=== PATIENT | male | born 1945 | race Asian ===

== ENCOUNTER → 2016-12-31 | Outpatient (CLI) | payer OTHER | END | disposition home or self-care (01) | LOC: RADPV 09:08 | PROVIDERS: ATTEND Internal Medicine Nephrology | DX: N18.9 Chronic kidney disease, unspecified (principal); N28.1 Cyst of kidney, acquired | CPT/HCPCS: 76770 ==

== ENCOUNTER 2021-08-16 04:30 | Inpatient (IN) | payer MEDICARE, OTHER ==
[~2021-08-16] VITALS: Ht 165.1 cm; Wt 79.4 kg
[2021-08-16 05:15] LABS: BASOPHILS % (AUTO) 1.3 % (0.0-2.0); EOSINOPHILS % (AUTO) 3.7 % (1.0-6.0); HEMOGLOBIN 7.8 g/dL (13.5-17.5); LYMPHOCYTES # (AUTO) 1.7 K/uL (1.0-4.8); LYMPHOCYTES % (AUTO) 18.8 % (22.0-44.0); MEAN CORPUSCULAR HEMOGLOBIN 27.8 pg (26.0-34.0); MEAN CORPUSCULAR HGB CONC 32.6 G/dL (31.0-37.0); MEAN CORPUSCULAR VOLUME 85 fL (80-100); MONOCYTES # (AUTO) 0.7 K/uL (0.1-1.0); MONOCYTES % (AUTO) 8.2 % (2.0-9.0); NEUTROPHILS # (AUTO) 6.1 K/uL (1.8-7.7); PLATELET COUNT (AUTO) 231 K/uL (150-450); RED BLOOD CELL COUNT(AUTO) 2.82 MIL/uL (4.50-5.90); RED CELL DISTRIBUTION WIDTH 15.1 % (11.5-14.5)
[2021-08-16 05:19] LABS: COVID AG,FIA SOURCE NASOPHARYNGEAL
[2021-08-16 05:26] LABS: CALCIUM, TOTAL 7.8 mg/dL (8.8-10.5); CREATININE 8.89 mg/dL (0.60-1.30); POTASSIUM 4.7 mmol/L (3.5-5.1)
[2021-08-16 05:30] LABS: PROTHROMBIN TIME 10.2 SEC (9.4-11.6)
[2021-08-16 05:36] LABS: ALBUMIN 2.5 g/dL (3.4-5.0); BILIRUBIN,TOTAL 0.4 mg/dL (0.1-1.0); PHOSPHORUS 7.9 mg/dL (2.5-4.9); TOTAL PROTEIN, SERUM 6.4 g/dL (6.4-8.2)
[2021-08-16] MEDS ORDERED: FUROSEMIDE 40 MG/4 ML VIAL IVP ONE (06:15)
[2021-08-16] MEDS ORDERED: NITROGLYCERIN 50 MG/D5% WATER 250 ML IV PRN (06:15)
[2021-08-16] MEDS ORDERED: ASPIRIN 81 MG CHEWABLE TABLET PO ONE (06:15)
[2021-08-16 06:31] LABS: APPEARANCE,URINE CLEAR (CLEAR); BILIRUBIN,URINE NEGATIVE (NEGATIVE); GLUCOSE, URINE (UA) 250 mg/dL (NEGATIVE); KETONES,URINE NEGATIVE (NEGATIVE); LEUKOCYTE ESTERASE ,URINE NEGATIVE (NEGATIVE); NITRATE,URINE NEGATIVE (NEGATIVE); OCCULT BLOOD,URINE MODERATE (NEGATIVE); PH,URINE 5.5 (5.0-8.0); PROTEIN,URINE SEE CONFIRM (NEGATIVE); UROBILINOGEN,URINE 0.2 mg/dL (<=1.0)
[2021-08-16 06:49] LABS: BACTERIA,URINE None Seen /HPF (None Seen); SULFOSALICYLIC ACID,URINE 4+ (Negative); WBC,URINE None Seen /HPF (0-5)
[2021-08-16 06:50] LABS: FINE GRANULAR CASTS,URINE 0-2 /LPF (None Seen)
[2021-08-16] MEDS ORDERED: NiCARDipine HCL 25 MG in DEXTROSE 5%-WATER 240 ML IV PRN (08:30)
[2021-08-16] MEDS ORDERED: BISACODYL 10 MG RECTAL RECTAL SUPPOSITORY PR PRN (09:30)
[2021-08-16] MEDS ORDERED: 0.9% SODIUM CHLORIDE 10 ML SYRINGE IVP PRN (09:30)
[2021-08-16] MEDS ORDERED: ALBUTEROL SULFATE 2.5 MG/0.5 ML NEB SOLUTION NEB PRN (09:30)
[2021-08-16] MEDS ORDERED: ACETAMINOPHEN 325 MG TABLET PO PRN (09:30)
[2021-08-16] MEDS ORDERED: DEXTROSE 50%-WATER 25 GM/50 ML SYRINGE IVP PRN (09:30)
[2021-08-16] MEDS ORDERED: IPRATROPIUM BROMIDE 0.5 MG/2.5 ML NEB SOLUTION NEB PRN (09:30)
[2021-08-16] MEDS ORDERED: ONDANSETRON HCL 4 MG/2 ML VIAL IVP PRN (09:30)
[2021-08-16] MEDS: PANTOPRAZOLE SODIUM 40 MG DR TABLET PO SCH (09:51)
[2021-08-16] MEDS: ASPIRIN 81 MG CHEWABLE TABLET PO SCH (09:52)
[2021-08-16] MEDS: ATORVASTATIN CALCIUM 20 MG TABLET PO SCH (10:18)
[2021-08-16] MEDS: NITROGLYCERIN 2% (1 GM=INCH) PACKET TP SCH ×2 (10:18→16:59)
[2021-08-16] MEDS ORDERED: BUMETANIDE 0.25 MG/ML 4 ML VIAL IVP ONE (10:30)
[2021-08-16] MEDS ORDERED: LABETALOL HCL 5 MG/ML 20 ML VIAL IVP PRN (11:00)
[2021-08-16] MEDS: HydrALAZINE HCL 50 MG TABLET PO SCH ×2 (11:00→21:31)
[2021-08-16] MEDS: SODIUM BICARBONATE 650 MG TABLET PO SCH ×3 (11:15→21:31)
[2021-08-16] MEDS ORDERED: PENTETATE DTPA TC99M/MCL ISOTOPE 1 EA INJ INJ ONE (11:30)
[2021-08-16] MEDS ORDERED: MAA ALBUMIN AGGREGATED TC99M/UD<10MCL ISOTOPE 1 EA INJ INJ ONE (12:30)
[2021-08-16 13:26] VITALS: BP 177/94
[2021-08-16 16:28] VITALS: BP 138/76
[2021-08-16] MEDS: LABETALOL HCL 100 MG TABLET PO SCH ×2 (16:59→21:33)
[2021-08-16 20:11] VITALS: BP 126/67
[2021-08-16 20:19] LABS: GLUCOMETER DEV NAME(LOC) 5S.1; GLUCOSE,POINT OF CARE 245 MG/DL (70-110)
[2021-08-16 20:19] LABS: GLUCOMETER DEV NAME(LOC) 5S.1; GLUCOSE,POINT OF CARE 168 MG/DL (70-110)
[2021-08-16] MEDS: INSULIN LISPRO 100 UNITS/ML SQ PRN (21:33)
[2021-08-17] VITALS (12 sets, daily range): BP systolic 115–162; BP diastolic 55–82
[2021-08-17] MEDS: NITROGLYCERIN 2% (1 GM=INCH) PACKET TP SCH ×4 (01:06→23:46)
[2021-08-17 06:19] LABS: GLUCOMETER DEV NAME(LOC) 5N.3; GLUCOSE,POINT OF CARE 92 MG/DL (70-110)
[2021-08-17] MEDS: BUMETANIDE 0.25 MG/ML 4 ML VIAL IVP SCH (06:20)
[2021-08-17 06:33] LABS: % IRON SATURATION 14.6 % (30-44)
[2021-08-17 07:01] LABS: BASOPHILS % (AUTO) 0.8 % (0.0-2.0); EOSINOPHILS % (AUTO) 2.5 % (1.0-6.0); LYMPHOCYTES # (AUTO) 1.7 K/uL (1.0-4.8); LYMPHOCYTES % (AUTO) 17.8 % (22.0-44.0); MEAN CORPUSCULAR HEMOGLOBIN 27.8 pg (26.0-34.0); MEAN CORPUSCULAR HGB CONC 32.4 G/dL (31.0-37.0); MEAN CORPUSCULAR VOLUME 86 fL (80-100); MONOCYTES % (AUTO) 10.3 % (2.0-9.0); NEUTROPHILS # (AUTO) 6.4 K/uL (1.8-7.7); NEUTROPHILS % (AUTO) 68.6 % (40.0-70.0); PLATELET COUNT (AUTO) 202 K/uL (150-450); RED BLOOD CELL COUNT(AUTO) 2.43 MIL/uL (4.50-5.90)
[2021-08-17 07:12] LABS: ALBUMIN 2.1 g/dL (3.4-5.0); BILIRUBIN,TOTAL 0.4 mg/dL (0.1-1.0); CALCIUM, TOTAL 7.4 mg/dL (8.8-10.5); CHOL/HDL RATIO 2.5 (4.2-7.3); CREATININE 9.4 mg/dL (0.60-1.30); FREE T4 (FREE THYROXINE) 0.96 ng/dL (0.76-1.46); PHOSPHORUS 8.4 mg/dL (2.5-4.9); POTASSIUM 4.5 mmol/L (3.5-5.1); THYROID STIMULATING HORMONE 1.28 uIU/mL (0.36-3.74); TOTAL PROTEIN, SERUM 5.6 g/dL (6.4-8.2)
[2021-08-17 07:16] LABS: HEMATOCRIT 20.8 % (41-53); HEMOGLOBIN 6.7 g/dL (13.5-17.5)
[2021-08-17] MEDS ORDERED: HydrALAZINE HCL 50 MG TABLET PO SCH (09:00)
[2021-08-17] MEDS: HydrALAZINE HCL 50 MG TABLET PO SCH ×3 (09:00→21:22)
[2021-08-17] MEDS ORDERED: ISOSORB DINIT/HYDRALAZINE HCL 20-37.5 MG TABLET PO SCH (09:00)
[2021-08-17] MEDS: CARVEDILOL 25 MG TABLET PO SCH ×2 (09:00→21:19)
[2021-08-17] MEDS: SODIUM BICARBONATE 650 MG TABLET PO SCH ×2 (09:00→21:22)
[2021-08-17] MEDS: CALCIUM ACETATE 667 MG CAPSULE PO SCH ×2 (12:00→18:00)
[2021-08-17 12:26] LABS: GLUCOMETER DEV NAME(LOC) 5S.1; GLUCOSE,POINT OF CARE 88 MG/DL (70-110)
[2021-08-17] MEDS: EPOETIN ALFA 10,000 UNITS/ML 2 ML VIAL SQ SCH (15:23)
[2021-08-17] MEDS: PANTOPRAZOLE SODIUM 40 MG DR TABLET PO SCH (15:24)
[2021-08-17] MEDS: ATORVASTATIN CALCIUM 20 MG TABLET PO SCH (15:24)
[2021-08-17] MEDS: CHOLECALCIFEROL (VIT D3) 5,000 [125 MCG] UNITS CAPSULE PO SCH (15:27)
[2021-08-17] MEDS ORDERED: SODIUM CHLORIDE 0.9% 1,000 ML ONE (17:58)
[2021-08-17] MEDS: INSULIN LISPRO 100 UNITS/ML SQ PRN (18:01)
[2021-08-17 21:23] LABS: GLUCOMETER DEV NAME(LOC) 5N.1C; GLUCOSE,POINT OF CARE 173 MG/DL (70-110)
[2021-08-17] MEDS ORDERED: SODIUM CHLORIDE 0.9% 250 ML IV ONE (21:44)
[2021-08-18] VITALS (8 sets, daily range): BP systolic 137–162; BP diastolic 58–87
[2021-08-18] MEDS: BUMETANIDE 0.25 MG/ML 4 ML VIAL IVP SCH (06:05)
[2021-08-18 07:04] LABS: HEMATOCRIT 25.7 % (41-53); HEMOGLOBIN 8.5 g/dL (13.5-17.5); LYMPHOCYTES # (AUTO) 1.3 K/uL (1.0-4.8); LYMPHOCYTES % (AUTO) 14.2 % (22.0-44.0); MEAN CORPUSCULAR HEMOGLOBIN 28.4 pg (26.0-34.0); MEAN CORPUSCULAR HGB CONC 33.2 G/dL (31.0-37.0); MEAN CORPUSCULAR VOLUME 86 fL (80-100); MONOCYTES # (AUTO) 0.9 K/uL (0.1-1.0); MONOCYTES % (AUTO) 10.1 % (2.0-9.0); NEUTROPHILS # (AUTO) 6.7 K/uL (1.8-7.7); NEUTROPHILS % (AUTO) 71.7 % (40.0-70.0); PLATELET COUNT (AUTO) 219 K/uL (150-450); RED CELL DISTRIBUTION WIDTH 14.9 % (11.5-14.5)
[2021-08-18 07:18] LABS: ALBUMIN 2.2 g/dL (3.4-5.0); BILIRUBIN,TOTAL 0.8 mg/dL (0.1-1.0); CALCIUM, TOTAL 7.9 mg/dL (8.8-10.5); CREATININE 9.81 mg/dL (0.60-1.30); MAGNESIUM 2.2 mg/dL (1.80-2.40); PHOSPHORUS 8.7 mg/dL (2.5-4.9); POTASSIUM 4.9 mmol/L (3.5-5.1); TOTAL PROTEIN, SERUM 6.3 g/dL (6.4-8.2)
[2021-08-18] MEDS: PANTOPRAZOLE SODIUM 40 MG DR TABLET PO SCH (08:22)
[2021-08-18] MEDS: HydrALAZINE HCL 50 MG TABLET PO SCH ×3 (08:22→20:26)
[2021-08-18] MEDS: SOD FERRIC GLUC COMPLX/SUCROSE 125 MG in SODIUM CHLORIDE 0.9% 100 ML IV SCH ×2 (08:22→11:04)
[2021-08-18] MEDS: SODIUM BICARBONATE 650 MG TABLET PO SCH ×2 (08:22→20:26)
[2021-08-18] MEDS: CALCIUM ACETATE 667 MG CAPSULE PO SCH ×3 (08:23→18:12)
[2021-08-18] MEDS: CARVEDILOL 25 MG TABLET PO SCH ×2 (08:23→20:26)
[2021-08-18] MEDS: ATORVASTATIN CALCIUM 20 MG TABLET PO SCH (08:23)
[2021-08-18] MEDS: ASPIRIN 81 MG CHEWABLE TABLET PO SCH (08:23)
[2021-08-18] MEDS: CHOLECALCIFEROL (VIT D3) 5,000 [125 MCG] UNITS CAPSULE PO SCH (08:26)
[2021-08-18] MEDS: NITROGLYCERIN 2% (1 GM=INCH) PACKET TP SCH ×3 (08:26→23:41)
[2021-08-18] MEDS ORDERED: MIDAZOLAM HCL 2 MG/2 ML VIAL ONE (08:41)
[2021-08-18] MEDS ORDERED: FentaNYL CITRATE PF 100 MCG/2 ML VIAL ONE (08:41)
[2021-08-18] MEDS ORDERED: NALOXONE HCL 0.4 MG/ML VIAL ONE (08:41)
[2021-08-18] MEDS ORDERED: FLUMAZENIL 0.1 MG/ML 5 ML VIAL IVP ONE (08:41)
[2021-08-18] MEDS ORDERED: MIDAZOLAM HCL 2 MG/2 ML VIAL IVP ONE (09:20)
[2021-08-18] MEDS ORDERED: FentaNYL CITRATE PF 100 MCG/2 ML VIAL IVP ONE ×2 (09:20→09:35)
[2021-08-18 12:14] LABS: GLUCOMETER DEV NAME(LOC) 5N.3; GLUCOSE,POINT OF CARE 120 MG/DL (70-110)
[2021-08-18] MEDS ORDERED: SODIUM CHLORIDE 0.9% 2,000 ML ONE (14:56)
[2021-08-18 17:15] LABS: GLUCOMETER DEV NAME(LOC) 5S.1; GLUCOSE,POINT OF CARE 140 MG/DL (70-110)
[2021-08-18 18:12] LABS: GLUCOMETER DEV NAME(LOC) 5S.1; GLUCOSE,POINT OF CARE 120 MG/DL (70-110)
[2021-08-18] MEDS: INSULIN LISPRO 100 UNITS/ML SQ PRN (20:27)
[2021-08-19 00:28] VITALS: BP 140/65
[2021-08-19 01:18] LABS: GLUCOMETER DEV NAME(LOC) 5S.1; GLUCOSE,POINT OF CARE 230 MG/DL (70-110)
[2021-08-19 04:52] VITALS: BP 149/80
[2021-08-19 06:07] LABS: BASOPHILS % (AUTO) 0.8 % (0.0-2.0); HEMATOCRIT 25.7 % (41-53); HEMOGLOBIN 8.5 g/dL (13.5-17.5); LYMPHOCYTES # (AUTO) 1.2 K/uL (1.0-4.8); LYMPHOCYTES % (AUTO) 12.4 % (22.0-44.0); MEAN CORPUSCULAR HEMOGLOBIN 28.4 pg (26.0-34.0); MEAN CORPUSCULAR HGB CONC 33.2 G/dL (31.0-37.0); MEAN CORPUSCULAR VOLUME 85 fL (80-100); MONOCYTES # (AUTO) 1.2 K/uL (0.1-1.0); MONOCYTES % (AUTO) 11.9 % (2.0-9.0); NEUTROPHILS # (AUTO) 7.2 K/uL (1.8-7.7); NEUTROPHILS % (AUTO) 71.9 % (40.0-70.0); PLATELET COUNT (AUTO) 180 K/uL (150-450); RED BLOOD CELL COUNT(AUTO) 3.01 MIL/uL (4.50-5.90)
[2021-08-19 07:08] LABS: GLUCOMETER DEV NAME(LOC) 5S.2B; GLUCOSE,POINT OF CARE 129 MG/DL (70-110)
[2021-08-19 07:08] LABS: BILIRUBIN,TOTAL 0.4 mg/dL (0.1-1.0); CALCIUM, TOTAL 8.1 mg/dL (8.8-10.5); CREATININE 7.76 mg/dL (0.60-1.30); PHOSPHORUS 6.2 mg/dL (2.5-4.9); POTASSIUM 4.5 mmol/L (3.5-5.1); TOTAL PROTEIN, SERUM 5.8 g/dL (6.4-8.2)
[2021-08-19 07:50] VITALS: BP 175/83
[2021-08-19] MEDS: ATORVASTATIN CALCIUM 20 MG TABLET PO SCH (08:14)
[2021-08-19] MEDS: SODIUM BICARBONATE 650 MG TABLET PO SCH (08:15)
[2021-08-19] MEDS: ASPIRIN 81 MG CHEWABLE TABLET PO SCH (08:16)
[2021-08-19] MEDS: HydrALAZINE HCL 50 MG TABLET PO SCH ×3 (08:17→20:45)
[2021-08-19] MEDS: CHOLECALCIFEROL (VIT D3) 5,000 [125 MCG] UNITS CAPSULE PO SCH (08:17)
[2021-08-19] MEDS: DOCUSATE SODIUM 100 MG CAPSULE PO PRN (08:17)
[2021-08-19] MEDS: NITROGLYCERIN 2% (1 GM=INCH) PACKET TP SCH ×3 (08:17→23:18)
[2021-08-19] MEDS: PANTOPRAZOLE SODIUM 40 MG DR TABLET PO SCH (08:17)
[2021-08-19] MEDS: CARVEDILOL 25 MG TABLET PO SCH ×2 (08:18→20:45)
[2021-08-19] MEDS: BUMETANIDE 0.25 MG/ML 4 ML VIAL IVP SCH (08:18)
[2021-08-19] MEDS: CALCIUM ACETATE 667 MG CAPSULE PO SCH ×3 (08:18→17:34)
[2021-08-19] MEDS: EPOETIN ALFA 10,000 UNITS/ML 2 ML VIAL SQ SCH (08:19)
[2021-08-19 11:15] VITALS: BP 161/100
[2021-08-19] MEDS: SOD FERRIC GLUC COMPLX/SUCROSE 125 MG in SODIUM CHLORIDE 0.9% 100 ML IV SCH (12:12)
[2021-08-19] MEDS: INSULIN LISPRO 100 UNITS/ML SQ PRN ×2 (12:19→20:53)
[2021-08-19] MEDS ORDERED: SODIUM CHLORIDE 0.9% 2,000 ML ONE (13:47)
[2021-08-19 15:05] VITALS: BP 159/76
[2021-08-19 17:41] LABS: GLUCOMETER DEV NAME(LOC) 5S.2B; GLUCOSE,POINT OF CARE 217 MG/DL (70-110)
[2021-08-19 19:26] VITALS: BP 138/64
[2021-08-20 00:14] VITALS: BP 158/68
[2021-08-20 04:17] LABS: GLUCOMETER DEV NAME(LOC) 5S.2B; GLUCOSE,POINT OF CARE 115 MG/DL (70-110)
[2021-08-20 04:17] LABS: GLUCOMETER DEV NAME(LOC) 5S.2B; GLUCOSE,POINT OF CARE 241 MG/DL (70-110)
[2021-08-20 05:27] VITALS: BP 170/93
[2021-08-20 06:43] LABS: CALCIUM, TOTAL 8.1 mg/dL (8.8-10.5); CREATININE 5.43 mg/dL (0.60-1.30); PHOSPHORUS 3.9 mg/dL (2.5-4.9)
[2021-08-20 07:35] VITALS: BP 177/79
[2021-08-20] MEDS: NITROGLYCERIN 2% (1 GM=INCH) PACKET TP SCH ×2 (08:00→16:00)
[2021-08-20] MEDS: HydrALAZINE HCL 50 MG TABLET PO SCH ×3 (09:00→20:54)
[2021-08-20] MEDS ORDERED: SODIUM CHLORIDE 0.9% 2,000 ML ONE (09:34)
[2021-08-20] MEDS: DOCUSATE SODIUM 100 MG CAPSULE PO PRN (10:11)
[2021-08-20] MEDS: PANTOPRAZOLE SODIUM 40 MG DR TABLET PO SCH (10:11)
[2021-08-20] MEDS: ASPIRIN 81 MG CHEWABLE TABLET PO SCH (10:11)
[2021-08-20] MEDS: CALCIUM ACETATE 667 MG CAPSULE PO SCH ×3 (10:11→20:54)
[2021-08-20] MEDS: CHOLECALCIFEROL (VIT D3) 5,000 [125 MCG] UNITS CAPSULE PO SCH (10:11)
[2021-08-20] MEDS: ATORVASTATIN CALCIUM 20 MG TABLET PO SCH (10:11)
[2021-08-20] MEDS: CARVEDILOL 25 MG TABLET PO SCH ×2 (10:12→20:54)
[2021-08-20] MEDS: BUMETANIDE 1 MG TABLET PO SCH (10:12)
[2021-08-20] MEDS: SOD FERRIC GLUC COMPLX/SUCROSE 125 MG in SODIUM CHLORIDE 0.9% 100 ML IV SCH (10:17)
[2021-08-20] MEDS: VITAMIN B COMP/VIT C/FOLIC ACID CAPSULE PO SCH (10:19)
[2021-08-20 12:46] VITALS: BP 159/85
[2021-08-20] MEDS ORDERED: SODIUM CHLORIDE 0.9% 1,000 ML ONE (12:50)
[2021-08-20] MEDS ORDERED: SODIUM CHLORIDE 0.9% 1,000 ML IV ONE (13:00)
[2021-08-20 13:59] LABS: GLUCOMETER DEV NAME(LOC) 5N.1C; GLUCOSE,POINT OF CARE 155 MG/DL (70-110)
[2021-08-20] MEDS ORDERED: VANCOMYCIN HCL 1 GM/VIAL ONE (14:56)
[2021-08-20] MEDS ORDERED: SODIUM CHLORIDE 0.9% 0 ML ONE (14:56)
[2021-08-20] MEDS ORDERED: LIDOCAINE/PF 1% 30 ML VIAL ONE (14:56)
[2021-08-20] MEDS ORDERED: HEPARIN SODIUM,PORCINE 5,000 UNITS/ML VIAL ONE ×2 (14:56→17:04)
[2021-08-20] MEDS ORDERED: SODIUM CHLORIDE 0.9% 500 ML IV ONE ×2 (14:57→23:16)
[2021-08-20] MEDS ORDERED: SODIUM CHLORIDE 0.9% 100 ML ONE (14:57)
[2021-08-20] MEDS ORDERED: HEPARIN SODIUM,PORCINE 1,000 UNITS/ML VIAL IVP ONE (15:56)
[2021-08-20] MEDS ORDERED: TAMSULOSIN HCL 0.4 MG CAPSULE PO ONE (16:15)
[2021-08-20] MEDS ORDERED: OxyCODONE HCL 5 MG IR TABLET PO PRN (19:00)
[2021-08-20 21:00] VITALS: BP 158/74
[2021-08-20] MEDS: INSULIN LISPRO 100 UNITS/ML SQ PRN (21:14)
[2021-08-20 21:20] LABS: GLUCOMETER DEV NAME(LOC) 5N.3; GLUCOSE,POINT OF CARE 159 MG/DL (70-110)
[2021-08-21] VITALS: BP 144/62
[2021-08-21 02:05] LABS: GLUCOMETER DEV NAME(LOC) 5S.1; GLUCOSE,POINT OF CARE 145 MG/DL (70-110)
[2021-08-21 03:55] VITALS: BP 154/60
[2021-08-21] MEDS ORDERED: LIDOCAINE/PF 2% 5 ML VIAL IM ONE (05:27)
[2021-08-21] MEDS ORDERED: ONDANSETRON HCL 4 MG/2 ML VIAL IVP ONE (05:27)
[2021-08-21] MEDS ORDERED: FentaNYL CITRATE PF 100 MCG/2 ML VIAL IVP ONE (05:27)
[2021-08-21] MEDS ORDERED: MIDAZOLAM HCL 2 MG/2 ML VIAL IVP ONE (05:27)
[2021-08-21 06:59] LABS: CALCIUM, TOTAL 8.1 mg/dL (8.8-10.5); CREATININE 4.02 mg/dL (0.60-1.30); PHOSPHORUS 2.5 mg/dL (2.5-4.9); POTASSIUM 3.5 mmol/L (3.5-5.1)
[2021-08-21 07:02] VITALS: BP 134/72
[2021-08-21 07:41] VITALS: BP 156/85
[2021-08-21 08:00] LABS: GLUCOMETER DEV NAME(LOC) 5S.1; GLUCOSE,POINT OF CARE 133 MG/DL (70-110)
[2021-08-21] MEDS ORDERED: TAMSULOSIN HCL 0.4 MG CAPSULE PO SCH (09:00)
[2021-08-21] MEDS: CARVEDILOL 25 MG TABLET PO SCH (09:06)
[2021-08-21] MEDS: VITAMIN B COMP/VIT C/FOLIC ACID CAPSULE PO SCH (09:06)
[2021-08-21] MEDS: BUMETANIDE 1 MG TABLET PO SCH (09:06)
[2021-08-21] MEDS: HydrALAZINE HCL 50 MG TABLET PO SCH ×2 (09:06→16:11)
[2021-08-21] MEDS: PANTOPRAZOLE SODIUM 40 MG DR TABLET PO SCH (09:06)
[2021-08-21] MEDS: CALCIUM ACETATE 667 MG CAPSULE PO SCH ×2 (09:06→11:39)
[2021-08-21] MEDS: NITROGLYCERIN 2% (1 GM=INCH) PACKET TP SCH ×3 (09:06→16:00)
[2021-08-21] MEDS: ATORVASTATIN CALCIUM 20 MG TABLET PO SCH (09:07)
[2021-08-21] MEDS: CHOLECALCIFEROL (VIT D3) 5,000 [125 MCG] UNITS CAPSULE PO SCH (09:07)
[2021-08-21] MEDS: ASPIRIN 81 MG CHEWABLE TABLET PO SCH (09:07)
[2021-08-21] MEDS: EPOETIN ALFA 10,000 UNITS/ML 2 ML VIAL SQ SCH (09:13)
[2021-08-21] MEDS: SOD FERRIC GLUC COMPLX/SUCROSE 125 MG in SODIUM CHLORIDE 0.9% 100 ML IV SCH (09:14)
[2021-08-21] MEDS ORDERED: SODIUM CHLORIDE 0.9% 250 ML IV ONE (09:17)
[2021-08-21 11:21] VITALS: BP 141/55
[2021-08-21] MEDS: INSULIN LISPRO 100 UNITS/ML SQ PRN (11:41)
[2021-08-21] MEDS ORDERED: ATOR20TA65 PO (14:22)
[2021-08-21] MEDS ORDERED: ASPI81 PO (14:22)
[2021-08-21] MEDS ORDERED: B CO1CAP6 PO (14:22)
[2021-08-21] MEDS ORDERED: ISOS30TA92 PO (14:23)
[2021-08-21] MEDS ORDERED: CHOL500013 PO (14:23)
[2021-08-21] MEDS ORDERED: TAMS-13 PO (14:23)
[2021-08-21] MEDS ORDERED: PHOSLOC PO (14:23)
[2021-08-21] MEDS ORDERED: CARV25 PO (14:23)
[2021-08-21] MEDS ORDERED: BUME1TAB6 PO (14:23)
[2021-08-21] MEDS ORDERED: HYDR-4174 PO (14:23)
[2021-08-21 14:32] VITALS: BP 145/64
[2021-08-21] MEDS ORDERED: HEPARIN SODIUM,PORCINE 1,000 UNITS/ML VIAL IVP ONE (16:58)
[2021-08-21 17:29] LABS: GLUCOMETER DEV NAME(LOC) 5N.1C; GLUCOSE,POINT OF CARE 201 MG/DL (70-110)
== END 2021-08-21 17:10 | disposition home or self-care (01) | DRG 264 ==
LOC: EMS 04:36 → 5S 10:50
PROVIDERS: ADMIT Internal Medicine; ATTEND Internal Medicine
PROC: 5A09357 Assistance with Respiratory Ventilation, Less than 24 Consecutive Hours, Continuous Positive Airway Pressure (ICD-10-PCS; principal; 2021-08-16)
PROC: 30233N1 Transfusion of Nonautologous Red Blood Cells into Peripheral Vein, Percutaneous Approach (ICD-10-PCS; 2021-08-17)
PROC: 0JH63XZ Insertion of Tunneled Vascular Access Device into Chest Subcutaneous Tissue and Fascia, Percutaneous Approach (ICD-10-PCS; 2021-08-18)
PROC: 02HV33Z Insertion of Infusion Device into Superior Vena Cava, Percutaneous Approach (ICD-10-PCS; 2021-08-18)
PROC: B548ZZA Ultrasonography of Superior Vena Cava, Guidance (ICD-10-PCS; 2021-08-18)
PROC: B5181ZA Fluoroscopy of Superior Vena Cava using Low Osmolar Contrast, Guidance (ICD-10-PCS; 2021-08-18)
PROC: 031C3ZF Bypass Left Radial Artery to Lower Arm Vein, Percutaneous Approach (ICD-10-PCS; 2021-08-20)
DX: I21.4 Non-ST elevation (NSTEMI) myocardial infarction (principal); J96.00 Acute respiratory failure, unspecified whether with hypoxia or hypercapnia; I50.23 Acute on chronic systolic (congestive) heart failure; N18.6 End stage renal disease; I13.2 Hypertensive heart and chronic kidney disease with heart failure and with stage 5 chronic kidney disease, or end stage renal disease; N25.81 Secondary hyperparathyroidism of renal origin; I16.1 Hypertensive emergency; E83.51 Hypocalcemia; E78.5 Hyperlipidemia, unspecified; E11.22 Type 2 diabetes mellitus with diabetic chronic kidney disease; E11.21 Type 2 diabetes mellitus with diabetic nephropathy; D63.1 Anemia in chronic kidney disease; N26.1 Atrophy of kidney (terminal); Z20.822 Contact with and (suspected) exposure to COVID-19; Z95.5 Presence of coronary angioplasty implant and graft; Z83.3 Family history of diabetes mellitus; Z86.79 Personal history of other diseases of the circulatory system; Z79.899 Other long term (current) drug therapy
CPT/HCPCS: 36245; 36561; 71045; 76000; 76937; 78582; 80048; 80053; 80061; 81001; 81002; 82306; 82550; 82728; 82962; 83540; 83550; 83690; 83735; 83880; 83970; 84100; 84145; 84439; 84443; 84484; 85025; 85610; 85730; 86850; 86900; 86901; 86923; 87340; 90935; 93005; 93306; 93970; 94660; 97110; 97116; 97162; 97530; 99291; A9539; A9540; G0378; J0690; J0885; J1644; J1940; J2250; J2310; J2405; J2916; J3010; J3370; J3490; J7030; J7040; J7050; J7060; P9016; 36415-L1; 36415-TC

== ENCOUNTER 2022-03-17 13:55 | Inpatient (IN) | payer MEDICARE, MEDICAID ==
[~2022-03-17] VITALS: Ht 170.2 cm; Wt 70.0 kg
[~2022-03-17 13:55] MED LIST: ASPI81 PO; ATOR20TA65 PO; B CO1CAP6 PO; BUME1TAB6 PO; CARV25 PO; CHOL500013 PO; HYDR-4174 PO; ISOS30TA92 PO; PHOSLOC PO; TAMS-13 PO
[2022-03-17 14:40] LABS: COVID AG,FIA SOURCE NASOPHARYNGEAL
[2022-03-17 14:57] LABS: BASOPHILS % (AUTO) 1.5 % (0.0-2.0); EOSINOPHILS % (AUTO) 6.7 % (1.0-6.0); HEMATOCRIT 33.8 % (41-53); HEMOGLOBIN 10.5 g/dL (13.5-17.5); LYMPHOCYTES # (AUTO) 1.2 K/uL (1.0-4.8); LYMPHOCYTES % (AUTO) 19.2 % (22.0-44.0); MEAN CORPUSCULAR HEMOGLOBIN 27.3 pg (26.0-34.0); MEAN CORPUSCULAR HGB CONC 31.2 G/dL (31.0-37.0); MEAN CORPUSCULAR VOLUME 88 fL (80-100); MONOCYTES # (AUTO) 0.6 K/uL (0.1-1.0); MONOCYTES % (AUTO) 10.4 % (2.0-9.0); NEUTROPHILS # (AUTO) 3.7 K/uL (1.8-7.7); NEUTROPHILS % (AUTO) 62.2 % (40.0-70.0); PLATELET COUNT (AUTO) 182 K/uL (150-450); RED BLOOD CELL COUNT(AUTO) 3.86 MIL/uL (4.50-5.90); RED CELL DISTRIBUTION WIDTH 18.2 % (11.5-14.5)
[2022-03-17] MEDS ORDERED: ALBUTEROL SULFATE 2.5 MG/0.5 ML NEB SOLUTION NEB PRN (15:00)
[2022-03-17] MEDS ORDERED: ONDANSETRON HCL 4 MG/2 ML VIAL IVP PRN (15:00)
[2022-03-17] MEDS ORDERED: ACETAMINOPHEN 325 MG TABLET PO PRN (15:00)
[2022-03-17 15:04] LABS: INFLUENZA TYPE A NEGATIVE FOR TYPE A (NEGATIVE); INFLUENZA TYPE B NEGATIVE FOR TYPE B (NEGATIVE)
[2022-03-17 15:06] LABS: CALCIUM, TOTAL 9.9 mg/dL (8.8-10.5); CREATININE 8.41 mg/dL (0.60-1.30); POTASSIUM 5.7 mmol/L (3.5-5.1)
[2022-03-17 15:14] LABS: ALBUMIN 3.3 g/dL (3.4-5.0); BILIRUBIN,TOTAL 0.8 mg/dL (0.1-1.0); MAGNESIUM 2.6 mg/dL (1.80-2.40); TOTAL PROTEIN, SERUM 7.5 g/dL (6.4-8.2)
[2022-03-17] MEDS ORDERED: INSULIN LISPRO 100 UNITS/ML SQ PRN (15:30)
[2022-03-17] MEDS ORDERED: BUMETANIDE 0.25 MG/ML 4 ML VIAL IVP ONE ×2 (15:30→22:00)
[2022-03-17] MEDS ORDERED: DEXTROSE 50%-WATER 25 GM/50 ML SYRINGE IVP PRN (15:30)
[2022-03-17] MEDS: ASPIRIN 81 MG CHEWABLE TABLET PO SCH (15:56)
[2022-03-17 20:29] VITALS: BP 188/86
[2022-03-17] MEDS ORDERED: ATORVASTATIN CALCIUM 20 MG TABLET PO SCH (21:00)
[2022-03-17] MEDS ORDERED: TAMSULOSIN HCL 0.4 MG CAPSULE PO SCH (21:00)
[2022-03-17] MEDS: DOCUSATE SODIUM 100 MG CAPSULE PO SCH (21:00)
[2022-03-17] MEDS: HEPARIN SODIUM,PORCINE 5,000 UNITS/ML VIAL SQ SCH (21:29)
[2022-03-17] MEDS: CARVEDILOL 12.5 MG TABLET PO SCH (21:29)
[2022-03-17] MEDS ORDERED: INSULIN REGULAR, HUMAN 100 UNITS/ML SQ ONE (21:30)
[2022-03-17] MEDS ORDERED: DEXTROSE 50%-WATER 25 GM/50 ML SYRINGE IVP ONE (21:30)
[2022-03-17] MEDS ORDERED: SODIUM POLYSTYRENE SULFONATE 15 GM/60 ML SUSPENSION BOTTLE PO ONE (22:00)
[2022-03-17] MEDS ORDERED: SODIUM CHLORIDE 0.9% 2,000 ML ONE (22:11)
[2022-03-17 22:15] VITALS: BP 169/95
[2022-03-17 22:20] VITALS: BP 169/93
[2022-03-18] VITALS (7 sets, daily range): BP systolic 137–171; BP diastolic 57–88
[2022-03-18 01:06] LABS: GLUCOMETER DEV NAME(LOC) 5N.1C; GLUCOSE,POINT OF CARE 191 MG/DL (70-110)
[2022-03-18] MEDS ORDERED: BENZONATATE 100 MG CAPSULE PO PRN (01:45)
[2022-03-18] MEDS: ISOSORBIDE DINITRATE 20 MG TABLET PO SCH ×3 (02:08→15:34)
[2022-03-18] MEDS: HydrALAZINE HCL 50 MG TABLET PO SCH ×3 (02:08→15:34)
[2022-03-18 06:11] LABS: GLUCOMETER DEV NAME(LOC) 5S.1B; GLUCOSE,POINT OF CARE 134 MG/DL (70-110)
[2022-03-18] MEDS: HEPARIN SODIUM,PORCINE 5,000 UNITS/ML VIAL SQ SCH (07:54)
[2022-03-18] MEDS: ASPIRIN 81 MG CHEWABLE TABLET PO SCH (07:54)
[2022-03-18] MEDS: CARVEDILOL 12.5 MG TABLET PO SCH (07:55)
[2022-03-18] MEDS: DOCUSATE SODIUM 100 MG CAPSULE PO SCH (07:55)
[2022-03-18 08:43] LABS: ALBUMIN 3.1 g/dL (3.4-5.0); BILIRUBIN,TOTAL 0.9 mg/dL (0.1-1.0); CALCIUM, TOTAL 8.8 mg/dL (8.8-10.5); CREATININE 5.79 mg/dL (0.60-1.30); POTASSIUM 4.5 mmol/L (3.5-5.1); TOTAL PROTEIN, SERUM 7.1 g/dL (6.4-8.2)
[2022-03-18] MEDS ORDERED: FAMOTIDINE 20 MG TABLET PO SCH (09:00)
[2022-03-18] MEDS ORDERED: VITAMIN B COMP/VIT C/FOLIC ACID CAPSULE PO SCH (09:00)
[2022-03-18] MEDS ORDERED: AmLODIPine BESYLATE 5 MG TABLET PO SCH ×2 (11:30)
[2022-03-18 21:32] LABS: GLUCOMETER DEV NAME(LOC) 5S.2B; GLUCOSE,POINT OF CARE 187 MG/DL (70-110)
[2022-03-20] MEDS ORDERED: ISOSORBIDE DINITRATE 10 MG TABLET PO SCH
== END 2022-03-18 17:45 | disposition home or self-care (01) | DRG 291 ==
LOC: EMS 13:55 → 5N 14:59
PROVIDERS: ADMIT Internal Medicine; ATTEND Internal Medicine
DX: I13.2 Hypertensive heart and chronic kidney disease with heart failure and with stage 5 chronic kidney disease, or end stage renal disease (principal); I50.23 Acute on chronic systolic (congestive) heart failure; N18.6 End stage renal disease; I42.9 Cardiomyopathy, unspecified; I25.10 Atherosclerotic heart disease of native coronary artery without angina pectoris; E11.22 Type 2 diabetes mellitus with diabetic chronic kidney disease; D64.9 Anemia, unspecified; E87.5 Hyperkalemia; Z20.822 Contact with and (suspected) exposure to COVID-19; N40.0 Benign prostatic hyperplasia without lower urinary tract symptoms; D63.8 Anemia in other chronic diseases classified elsewhere; Z83.3 Family history of diabetes mellitus; Z86.79 Personal history of other diseases of the circulatory system; Z95.5 Presence of coronary angioplasty implant and graft; Z99.2 Dependence on renal dialysis
CPT/HCPCS: 71045; 80053; 82550; 82962; 83735; 83880; 84100; 84484; 85025; 87081; 87340; 87804; 93005; 93306; 99291; J1644; J1815; J3490; J7030; 36415-L1; 36415-TC

== ENCOUNTER 2023-05-03 19:27 | Emergency (ER) | payer MEDICARE, MEDICAID ==
[~2023-05-03] VITALS: Ht 165.1 cm; Wt 68.0 kg
[2023-05-03 19:45] VITALS: TEMP 102
[2023-05-03] MEDS ORDERED: ACETAMINOPHEN 500 MG TABLET PO ONE (21:30)
[2023-05-03 21:46] LABS: COVID AG,FIA SOURCE NASOPHARYNGEAL
[2023-05-03 22:05] LABS: INFLUENZA TYPE B NEGATIVE FOR TYPE B (NEGATIVE)
[2023-05-03 22:07] LABS: BASOPHILS % (AUTO) 0.7 % (0.0-2.0); EOSINOPHILS % (AUTO) 0.2 % (1.0-6.0); HEMATOCRIT 31.3 % (41-53); HEMOGLOBIN 9.9 g/dL (13.5-17.5); LYMPHOCYTES # (AUTO) 0.9 K/uL (1.0-4.8); LYMPHOCYTES % (AUTO) 7.2 % (22.0-44.0); MEAN CORPUSCULAR HEMOGLOBIN 29.4 pg (26.0-34.0); MEAN CORPUSCULAR HGB CONC 31.6 G/dL (31.0-37.0); MEAN CORPUSCULAR VOLUME 93 fL (80-100); MONOCYTES # (AUTO) 1.1 K/uL (0.1-1.0); NEUTROPHILS % (AUTO) 82.9 % (40.0-70.0); PLATELET COUNT (AUTO) 174 K/uL (150-450); RED BLOOD CELL COUNT(AUTO) 3.36 MIL/uL (4.50-5.90); RED CELL DISTRIBUTION WIDTH 16.8 % (11.5-14.5)
[2023-05-03 22:07] LABS: INFLUENZA TYPE A POSITIVE FOR TYPE A (NEGATIVE)
[2023-05-03 22:17] LABS: CALCIUM, TOTAL 9.3 mg/dL (8.8-10.5); CREATININE 12.31 mg/dL (0.60-1.30); POTASSIUM 5.5 mmol/L (3.5-5.1)
[2023-05-03 22:25] LABS: LACTIC ACID 0.9 mmol/L (0.4-2.0)
[2023-05-03] MEDS ORDERED: OSELTAMIVIR PHOSPHATE 30 MG CAPSULE PO SCH (22:30)
[2023-05-03 22:41] LABS: ALBUMIN 3.4 g/dL (3.4-5.0); TOTAL PROTEIN, SERUM 7.7 g/dL (6.4-8.2)
[2023-05-03] MEDS ORDERED: AmLODIPine BESYLATE 5 MG TABLET PO ONE (22:45)
[2023-05-03] MEDS ORDERED: ALBUTEROL SULFATE HFA 90 MCG/PUFF 8 GM INHALER IH PRN (22:45)
[2023-05-03] MEDS ORDERED: FLUT1BLS9 IH (22:47)
[2023-05-03] MEDS ORDERED: ALBU18HF12 IH (22:47)
[2023-05-03] MEDS ORDERED: SACU1TAB7 PO (22:47)
[2023-05-03] MEDS ORDERED: SEVE800T17 PO (22:47)
[2023-05-03] MEDS ORDERED: TAMS-13 PO (22:47)
[2023-05-03] MEDS ORDERED: SPIR-37 PO (22:47)
[2023-05-03] MEDS ORDERED: ISOS30TA92 PO (22:47)
[2023-05-03] MEDS ORDERED: ASPI-1444 PO (22:47)
[2023-05-03] MEDS ORDERED: FURO40TA5 PO (22:47)
[2023-05-03] MEDS ORDERED: AMLO5TAB66 PO (22:47)
[2023-05-03] MEDS ORDERED: HYDR50TA36 PO (22:47)
[2023-05-03] MEDS ORDERED: IPRATROPIUM BROMIDE 0.5 MG/2.5 ML NEB SOLUTION NEB PRN (23:00)
[2023-05-03] MEDS ORDERED: HYDROCODONE/ACETAMINOPHEN 5-325 MG TABLET PO PRN (23:00)
[2023-05-03] MEDS ORDERED: MORPHINE SULFATE 2 MG/ML SYRINGE IVP PRN (23:00)
[2023-05-03] MEDS ORDERED: MAGNESIUM HYDROXIDE SUSPENSION 30 ML UDCUP PO PRN (23:00)
[2023-05-03] MEDS ORDERED: BISACODYL 10 MG RECTAL RECTAL SUPPOSITORY PR PRN (23:00)
[2023-05-03] MEDS ORDERED: ONDANSETRON HCL 4 MG/2 ML VIAL IVP PRN (23:00)
[2023-05-03] MEDS ORDERED: ACETAMINOPHEN 325 MG TABLET PO PRN (23:00)
[2023-05-03] MEDS ORDERED: ZOLPIDEM TARTRATE 5 MG TABLET PO PRN (23:00)
[2023-05-03] MEDS ORDERED: ALBUTEROL SULFATE 2.5 MG/0.5 ML NEB SOLUTION NEB PRN (23:00)
[2023-05-03 23:58] LABS: APPEARANCE,URINE CLEAR (CLEAR); BILIRUBIN,URINE NEGATIVE (NEGATIVE); GLUCOSE, URINE (UA) 150-200 mg/dL (NEGATIVE); KETONES,URINE NEGATIVE (NEGATIVE); LEUKOCYTE ESTERASE ,URINE NEGATIVE (NEGATIVE); NITRATE,URINE NEGATIVE (NEGATIVE); OCCULT BLOOD,URINE MODERATE (NEGATIVE); PROTEIN,URINE >600,SEE CONFIRM mg/dL (NEGATIVE); SPECIFIC GRAVITIY, URINE 1.013 (1.003-1.030); UROBILINOGEN,URINE <=1.0 mg/dL (<=1.0)
[2023-05-04] MEDS ORDERED: HEPARIN SODIUM,PORCINE 5,000 UNITS/ML VIAL SQ SCH
[2023-05-04 00:16] LABS: SULFOSALICYLIC ACID,URINE 3+ (Negative)
[2023-05-04 00:17] LABS: BACTERIA,URINE None Seen /HPF (None Seen); SQUAMOUS EPITHELIAL CELL,UR Moderate /LPF (None Seen); WBC,URINE 0-2 /HPF (0-5)
[2023-05-04] MEDS ORDERED: ASPIRIN 325 MG TABLET PO ONE (00:45)
[2023-05-04 00:52] VITALS: BP 173/81; PULSE 84; RESP 16
[2023-05-04] MEDS ORDERED: CALCIUM GLUCONATE 100 MG/ML 10 ML IVP ONE (04:15)
[2023-05-04] MEDS ORDERED: CALCIUM ACETATE 667 MG CAPSULE PO SCH (08:00)
[2023-05-04] MEDS ORDERED: FLUTICASONE/SALMETEROL 250-50 MCG/INH INHALER [60] IH SCH (09:00)
[2023-05-04] MEDS ORDERED: CARVEDILOL 25 MG TABLET PO SCH (09:00)
[2023-05-04] MEDS ORDERED: PANTOPRAZOLE SODIUM 40 MG/VIAL IVP SCH (09:00)
[2023-05-04] MEDS ORDERED: ASPIRIN 81 MG CHEWABLE TABLET PO SCH (09:00)
[2023-05-04] MEDS ORDERED: SACUBITRIL/VALSARTAN 49-51 MG TABLET PO SCH (09:00)
[2023-05-04] MEDS ORDERED: FOLIC ACID/VIT B COMPLEX AND C TABLET PO SCH (09:00)
[2023-05-04] MEDS ORDERED: ATORVASTATIN CALCIUM 20 MG TABLET PO SCH (09:00)
[2023-05-04] MEDS ORDERED: HydrALAZINE HCL 50 MG TABLET PO SCH (09:00)
[2023-05-04] MEDS ORDERED: CHOLECALCIFEROL (VIT D3) 5,000 [125 MCG] UNITS CAPSULE PO SCH (09:00)
[2023-05-04] MEDS ORDERED: ISOSORBIDE MONONITRATE 30 MG ER TABLET PO SCH (21:00)
[2023-05-04] MEDS ORDERED: TAMSULOSIN HCL 0.4 MG CAPSULE PO SCH (21:00)
== END 2023-05-07 14:56 | disposition short-term general hospital (02) ==
LOC: EMS 19:28 → ICUN 05-04 02:00 → UNDOADMIN 05-04 02:00 → EMS 05-07 14:56
DX: S09.93XA Unspecified injury of face, initial encounter (principal); J11.1 Influenza due to unidentified influenza virus with other respiratory manifestations; R50.9 Fever, unspecified; N18.6 End stage renal disease; I11.0 Hypertensive heart disease with heart failure; I50.9 Heart failure, unspecified; Z99.2 Dependence on renal dialysis; Z20.822 Contact with and (suspected) exposure to COVID-19; X58.XXXA Exposure to other specified factors, initial encounter; Y93.89 Activity, other specified; Y92.89 Other specified places as the place of occurrence of the external cause; Y99.8 Other external cause status
CPT/HCPCS: 80053; 81001; 82550; 83605; 84484; 85025; 87040; 87804; 36415; 71045; 99285; 93005; 96374; 96375; 96372; 87426; J1644; J0610; J2270; J2405; 81002; J3535; Q9967

== ENCOUNTER 2024-05-23 09:03 | Emergency (ER) | payer MEDICARE, MEDICAID ==
[~2024-05-23] VITALS: Ht 160 cm; Wt 72.4 kg
[~2024-05-23 09:03] MED LIST changes: +ALBU18HF12 IH; +AMLO5TAB66 PO; +ASPI-1444 PO; -ASPI81 PO; -BUME1TAB6 PO; +FLUT1BLS9 IH; +FURO40TA5 PO; -HYDR-4174 PO; +HYDR50TA36 PO; -PHOSLOC PO; +SACU1TAB7 PO; +SEVE800T38 PO; +SPIR-37 PO; -TAMS-13 PO; +TAMS0.4C94 PO
[2024-05-23 09:15] VITALS: PULSE 89; RESP 39; O2SAT 94
[2024-05-23 09:36] LABS: ABG BASE EXCESS -2.1 mmol/L (-2.0-3.0); ABG CARBOXYHEMOGLOBIN 0.6 % (0.0-1.5); ABG HCO3 22.8 mmol/L (22.0-26.0); ABG METHEMOGLOBIN 0.7 % (0.0-1.5); ABG OXYGEN CONTENT 12.9 mL/dL (15.0-23.0); ABG OXYGEN SATURATION 87.8 % (95.0-98.0); ABG OXYHEMOGLOBIN 86.7 % (94.0-100.0); ABG PCO2 38 mmHg (35-45); ABG PH 7.392 (7.35-7.450); ABG TOTAL HEMOGLOBIN 10.6 G/dL (12.0-18.0); PO2, ARTERIAL BG 54.2 mmHg (75.0-83.0); SOURCE, BLOOD GAS ARTERIAL; TEMPERATURE, FAHRENHEIT, BG 99.4 FAHREN (96.0-98.6)
[2024-05-23 09:37] LABS: ABG A-A DIFF O2 186.5 mmHg (10-20.0); ALLEN TEST, BLOOD GAS Positive; O2 DEVICE,BLOOD GAS BIPAP (ROOM AIR); SITE, BLOOD GAS RT RADIAL
[2024-05-23 09:38] LABS: SPONTANEOUS VT, BG 543 ml
[2024-05-23] MEDS: NITROGLYCERIN 2% (1 GM=INCH) OINTMENT PACKET TP ONE (09:46)
[2024-05-23] MEDS: BUMETANIDE 0.25 MG/ML 4 ML VIAL IVP ONE (09:46)
[2024-05-23 09:50] LABS: HEMATOCRIT 30.3 % (41-53); HEMOGLOBIN 9.8 g/dL (13.5-17.5); MEAN CORPUSCULAR HEMOGLOBIN 28.5 pg (26.0-34.0); MEAN CORPUSCULAR HGB CONC 32.3 G/dL (31.0-37.0); MEAN CORPUSCULAR VOLUME 88 fL (80-100); PLATELET COUNT (AUTO) 127 K/uL (150-450); RED BLOOD CELL COUNT(AUTO) 3.44 MIL/uL (4.50-5.90); RED CELL DISTRIBUTION WIDTH 15.4 % (11.5-14.5); WHITE BLOOD COUNT (AUTO) 2.3 K/uL (4.5-11.0)
[2024-05-23 10:06] LABS: CALCIUM, TOTAL 9.3 mg/dL (8.8-10.5); CREATININE 8.47 mg/dL (0.60-1.30); POTASSIUM 4.2 mmol/L (3.5-5.1)
[2024-05-23 10:07] LABS: BAND NEUTROPHILS % (MANUAL) 7 % (0-5); LYMPHOCYTES % (MANUAL) 16 % (22-44); MONOCYTES % (MANUAL) 3 % (2-9); RBC MORPHOLOGY COMMENT NORMAL RBC MORPH; SEGMENTED NEUTROPHILS % 74 % (40-70); TOTAL CELLS COUNTED 100
[2024-05-23 10:27] LABS: TROPONIN I-HIGH SENSITIVITY 1727 ng/L (<76)
[2024-05-23 10:30] LABS: ALBUMIN 2.9 g/dL (3.4-5.0); BILIRUBIN,TOTAL 1.3 mg/dL (0.1-1.0); TOTAL PROTEIN, SERUM 7.7 g/dL (6.4-8.2)
[2024-05-23] MEDS ORDERED: HydrALAZINE HCL 20 MG/ML VIAL IVP PRN (11:30)
[2024-05-23 12:18] VITALS: PULSE 94; RESP 28; O2SAT 100
[2024-05-23 12:44] LABS: TROPONIN I-HIGH SENSITIVITY 1938 ng/L (<76)
[2024-05-23 13:10] LABS: CALCIUM, TOTAL 8.7 mg/dL (8.8-10.5); CREATININE 8.58 mg/dL (0.60-1.30); POTASSIUM 4.2 mmol/L (3.5-5.1)
[2024-05-23] MEDS ORDERED: NOREPINEPHRINE 8 MG/0.9 % NACL 250 ML IV ONE (13:25)
[2024-05-23] MEDS ORDERED: PHENYLEPHRINE HCL IN 0.9% NACL 400 MCG/10 ML SYRINGE IVP ONE (13:25)
[2024-05-23] MEDS: KETAMINE HCL 500 MG in DEXTROSE 5%-WATER 490 ML IV PRN (13:29)
[2024-05-23] MEDS: NOREPINEPHRINE 8 MG/0.9 % NACL 250 ML IV PRN (13:34)
[2024-05-23 14:10] VITALS: BP 105/37; PULSE 68; RESP 22; TEMP 100.1; O2SAT 97
[2024-05-23 14:30] VITALS: BP 102/49; PULSE 79; RESP 22; O2SAT 97
[2024-05-23 15:19] VITALS: RESP 40; O2SAT 97
[2024-05-23] MEDS: PANTOPRAZOLE SODIUM 80 MG in SODIUM CHLORIDE 0.9% 100 ML IV SCH (15:45)
[2024-05-23] MEDS: VASOPRESSIN 40 UNITS in DEXTROSE 5%-WATER 98 ML IV PRN (15:45)
[2024-05-23] MEDS ORDERED: BISACODYL 10 MG RECTAL RECTAL SUPPOSITORY PR PRN (16:00)
[2024-05-23] MEDS ORDERED: ONDANSETRON HCL 4 MG/2 ML VIAL IVP PRN (16:00)
[2024-05-23] MEDS ORDERED: HYDROCODONE/ACETAMINOPHEN 5-325 MG TABLET PO PRN (16:00)
[2024-05-23] MEDS ORDERED: ZOLPIDEM TARTRATE 5 MG TABLET PO PRN (16:00)
[2024-05-23] MEDS ORDERED: MORPHINE SULFATE 2 MG/ML SYRINGE IVP PRN (16:00)
[2024-05-23] MEDS ORDERED: ACETAMINOPHEN 325 MG TABLET PO PRN (16:00)
[2024-05-23] MEDS ORDERED: MAGNESIUM HYDROXIDE SUSPENSION 30 ML UDCUP PO PRN (16:00)
[2024-05-23 16:13] LABS: ABG BASE EXCESS 1.7 mmol/L (-2.0-3.0); ABG HCO3 25.3 mmol/L (22.0-26.0); ABG METHEMOGLOBIN 0.9 % (0.0-1.5); ABG OXYGEN CONTENT 14.5 mL/dL (15.0-23.0); ABG OXYGEN SATURATION 98.1 % (95.0-98.0); ABG OXYHEMOGLOBIN 97.2 % (94.0-100.0); ABG PCO2 42 mmHg (35-45); ABG PH 7.406 (7.35-7.450); ABG TOTAL HEMOGLOBIN 10.5 G/dL (12.0-18.0); ALLEN TEST, BLOOD GAS Positive; PO2, ARTERIAL BG 72.2 mmHg (75.0-83.0); SITE, BLOOD GAS RT RADIAL; SOURCE, BLOOD GAS ARTERIAL; TEMPERATURE, FAHRENHEIT, BG 84.6 FAHREN (96.0-98.6)
[2024-05-23 16:14] LABS: ABG A-A DIFF O2 615.4 mmHg (10-20.0); O2 DEVICE,BLOOD GAS VENTILATOR (ROOM AIR); PEEP,BG 5 cm H2O; VT, ABG 450 ml
[2024-05-23 16:15] VITALS: BP 85/46; PULSE 85
[2024-05-23] MEDS ORDERED: PHENYLEPHRINE 200 MG/D5%-WATER 250 ML IV PRN (16:30)
[2024-05-23] MEDS ORDERED: DOCUSATE SODIUM 100 MG CAPSULE PO SCH (21:00)
[2024-05-24] MEDS ORDERED: PANTOPRAZOLE SODIUM 40 MG DR TABLET PO SCH (09:00)
== END 2024-05-23 19:25 | disposition admitted as inpatient to this hospital (09) ==
LOC: EMS 09:03 → UNDOADMIN 11:37 → EDH 11:37 → EMS 19:25
DX: I46.9 Cardiac arrest, cause unspecified (principal); J96.00 Acute respiratory failure, unspecified whether with hypoxia or hypercapnia; N18.6 End stage renal disease; Z99.2 Dependence on renal dialysis
CPT/HCPCS: 80048; 80053; 82550; 83880; 84484; 85025; 85730; 87340; 36415; 82805; 94660; 36600; 71045; 99285; 93005; 96365; 96367; 96368; 96375; 82803; J3490 ×4; C9113; J7060 ×2; J7050; 90935; 94002; J2370